=== PATIENT | male | born 1980 | race Caucasian/White ===

== ENCOUNTER 2018-02-04 15:26 | Emergency (ER) | payer OTHER ==
[~2018-02-04] VITALS: Ht 177.8 cm; Wt 113.4 kg
== END 2018-02-04 17:55 | disposition home or self-care (01) ==
LOC: ER 15:26
DX: S01.521A Laceration with foreign body of lip, initial encounter (principal); Y00.XXXA Assault by blunt object, initial encounter; Y93.89 Activity, other specified; Y92.89 Other specified places as the place of occurrence of the external cause; Y99.8 Other external cause status

== ENCOUNTER 2018-02-12 16:47 | Emergency (ER) | payer OTHER ==
[~2018-02-12] VITALS: Ht 177.8 cm; Wt 116.6 kg
== END 2018-02-13 14:05 | disposition home or self-care (01) ==
LOC: ER 16:47
DX: I10 Essential (primary) hypertension (principal)

== ENCOUNTER 2018-02-14 10:12 | Outpatient (CLI) | payer OTHER | END 2018-02-14 10:19 | disposition home or self-care (01) | LOC: LAB 10:12 | DX: N18.2 Chronic kidney disease, stage 2 (mild) (principal) ==

== ENCOUNTER → 2018-02-15 | Emergency (ER) | payer OTHER ==
[~2018-02-15] VITALS: Ht 177.8 cm; Wt 114.3 kg
== END | disposition home or self-care (01) ==
LOC: ER 13:20
DX: E87.6 Hypokalemia (principal)

== ENCOUNTER 2018-02-22 11:35 | Outpatient (CLI) | payer OTHER | END 2018-02-22 11:38 | disposition home or self-care (01) | LOC: TOM 11:35 | DX: I12.9 Hypertensive chronic kidney disease with stage 1 through stage 4 chronic kidney disease, or unspecified chronic kidney disease (principal); E87.6 Hypokalemia ==

== ENCOUNTER → 2018-02-22 | Outpatient (CLI) | payer OTHER | END | disposition home or self-care (01) | LOC: LAB 10:26 | DX: I12.9 Hypertensive chronic kidney disease with stage 1 through stage 4 chronic kidney disease, or unspecified chronic kidney disease (principal); E87.6 Hypokalemia ==

== ENCOUNTER 2018-02-26 08:42 | Outpatient (CLI) | payer OTHER | END 2018-02-26 09:01 | disposition home or self-care (01) | LOC: LAB 08:42 | DX: I12.9 Hypertensive chronic kidney disease with stage 1 through stage 4 chronic kidney disease, or unspecified chronic kidney disease (principal); E87.6 Hypokalemia ==

== ENCOUNTER 2018-03-02 11:32 | Outpatient (CLI) | payer OTHER | END 2018-03-02 11:38 | disposition home or self-care (01) | LOC: SONOGRAMA 11:32 | DX: K80.20 Calculus of gallbladder without cholecystitis without obstruction (principal) ==

== ENCOUNTER 2018-12-28 11:07 | Outpatient (CLI) | payer OTHER | END 2018-12-28 11:15 | disposition home or self-care (01) | LOC: LAB 11:07 | DX: R53.81 Other malaise (principal); R10.84 Generalized abdominal pain ==

== ENCOUNTER 2018-12-28 11:37 | Emergency (ER) | payer OTHER ==
[~2018-12-28] VITALS: Ht 177.8 cm; Wt 113.4 kg
== END 2018-12-28 22:00 | disposition home or self-care (01) ==
LOC: ER 11:37
DX: S00.451A Superficial foreign body of right ear, initial encounter (principal); X58.XXXA Exposure to other specified factors, initial encounter; Y93.89 Activity, other specified; Y92.89 Other specified places as the place of occurrence of the external cause; Y99.8 Other external cause status

== ENCOUNTER 2019-06-13 08:19 | Outpatient (CLI) | payer OTHER | END 2019-06-13 15:00 | disposition home or self-care (01) | LOC: LAB 08:19 | DX: N52.8 Other male erectile dysfunction (principal); N50.89 Other specified disorders of the male genital organs; Z11.3 Encounter for screening for infections with a predominantly sexual mode of transmission; Z13.89 Encounter for screening for other disorder; E66.8 Other obesity; Z76.0 Encounter for issue of repeat prescription ==